=== PATIENT | male | born 1955 | race Caucasian/White ===

== ENCOUNTER 2017-12-18 06:02 | Emergency (ER) | payer OTHER, MEDICAID ==
[~2017-12-18] VITALS: Ht 167.6 cm; Wt 68.0 kg
[2017-12-18 07:23] VITALS: BP 00/00; Ht 167.6 cm; Wt 68.0 kg
== END 2017-12-18 09:48 | disposition expired ==
LOC: ED 06:23
DX: I46.9 Cardiac arrest, cause unspecified (principal)